=== PATIENT | female | born 1975 | race Hispanic/Latino ===

== ENCOUNTER 2020-11-12 14:16 | Emergency (ER) | payer BC ==
[~2020-11-12] VITALS: Ht 154.9 cm; Wt 91.6 kg
[2020-11-12] MEDS ORDERED: MECLIZINE HCL12.5 MG PO (14:48)
== END 2020-11-12 14:52 | disposition home or self-care (01) ==
LOC: ER 14:47
DX: I10 Essential (primary) hypertension (principal); E11.9 Type 2 diabetes mellitus without complications; I45.10 Unspecified right bundle-branch block; U07.1 COVID-19
CPT/HCPCS: 93005; 99282